=== PATIENT | female | born 1975 | race African-American/Black ===

== ENCOUNTER 2016-11-13 13:52 | Emergency (ER) | payer OTHER ==
[~2016-11-13] VITALS: Ht 152.4 cm; Wt 89.0 kg
[2016-11-13] MEDS ORDERED: PREDNISONE 20MG TABLET PO STA (16:34)
[2016-11-13] MEDS ORDERED: ALBUTEROL (0.083%) 2.5MG/3ML NEB HHN STA (16:34)
[2016-11-13 17:30] LABS: HEMATOCRIT. 39.6 % (36.0-48.0); HEMOGLOBIN. 13.2 g/dL (12.0-16.0); MEAN CORPUSCULAR HEMOGLOBIN 32.4 pg (28.0-32.0); MEAN CORPUSCULAR HGB CONC 33.2 g/dL (31.0-37.0); MEAN CORPUSCULAR VOLUME 97.5 fL (81.0-99.0); PLATELET 213 x1000/uL (130-400); RED BLOOD CELL COUNT 4.06 mill/uL (4.2-5.4); RED CELL DISTRIBUTION WIDTH 13.3 % (11.6-14.6); WHITE BLOOD COUNT 7.3 x1000/uL (4.5-11.0)
[2016-11-13 17:32] LABS: DIFFERENTIAL COMMENT 1
[2016-11-13 17:44] LABS: ALANINE AMINOTRANSFERASE 10 IU/L (13-61); ALBUMIN 3.5 g/dL (3.4-5.0); ANION GAP 8; CALCIUM 8.6 mg/dL (8.5-10.1); CARBON DIOXIDE 29 mEq/L (21-32); CHLORIDE 108 mEq/L (98-107); INDEX HEMOLYSI 1 (1-3); INDEX ICTERIC 1 (1-4); INDEX LIPEMIC 1 (1-3); UREA NITROGEN BLOOD 9 mg/dL (7-21); eGFR > 60 mL/min (>60)
[2016-11-13 17:47] LABS: NT PRO B-TYPE NATRIURETIC PEP 286 pg/mL (5-125); TROPONIN I < 0.02 ng/mL (0.00-0.04)
[2016-11-13] MEDS ORDERED: CLONIDINE 0.2MG TABLET PO ONE (18:15)
[2016-11-13 18:21] VITALS: BP 150/94
[2016-11-13 18:35] LABS: ATYPICAL LYMPHOCYTES 3
[2016-11-13 18:36] LABS: ANISOCYTOSIS 1+; PLATELET ESTIMATE NORMAL
== END 2016-11-13 19:59 | disposition home or self-care (01) ==
LOC: ER 16:00
DX: R06.02 Shortness of breath (principal); R79.89 Other specified abnormal findings of blood chemistry; I10 Essential (primary) hypertension; Z88.6 Allergy status to analgesic agent; Z88.8 Allergy status to other drugs, medicaments and biological substances; Z59.0 Homelessness
CPT/HCPCS: 36415; 71010; 80053; 83880; 84484; 85025; 93005; 94640; 99285; J7512; J7611; Z7610